=== PATIENT | female | born 1970 ===

== ENCOUNTER 2018-01-13 23:11 | Inpatient (IN) | payer SELFPAY ==
[2018-01-14 00:06] LABS: ABS Basophils 0.1 10^3/ul (0-0.2); ABS Eosinophils 0 10^3/ul (0-0.6); ABS Lymphocytes 1.4 10^3/ul (1.0-4.8); ABS Monocytes 0.4 10^3/ul (0-0.8); ABS Neutrophils 4.9 10^3/ul (1.5-7.7); ABS Nucleated RBC 0 10^3/ul; Eosinophil % 0.6 % (0-6); Hematocrit 33 % (35-47); Hemoglobin 11.1 g/dl (12.0-16.0); Lymphocyte % 20.8 % (25-47); Mean Corpuscular HGB Conc 33 g/dl (31-36); Mean Corpuscular Hemoglobin 28 pg (27-31); Mean Corpuscular Volume 85 fL (80-97); Mean Platelet Volume 7.9 um3 (7.4-10.4); Nucleated Red Blood Cells % 0.1; Platelet Count 288 10^3/ul (150-450); Red Blood Count 3.94 10^6/ul (4.00-5.40); Red Cell Distribution Width 17 % (10.5-15); White Blood Count 6.9 10^3/ul (3.5-10.8)
[2018-01-14 00:22] LABS: EGFR Non-African American 67.4 (>60)
[2018-01-14 00:23] LABS: Lithium < 0.10 mmol/L (0.6-1.2)
--- NOTE | 2018-01-14 00:28 | ED ---
Psychiatric Complaint - HPI Summary HPI Summary: This is scribe Kalebdeepti Pizarro documenting for attending Dr. Nigel Chu MD. A 47 y/o female BIBP presents to ED s/p hallucinations. As per triage, "brought in by PD in handcuffs, pt not cooperative. here for mental health eval. pt yelling, talks about marifer rodriguez. eyes closed, easy respirations". In the ED room, the patient was not cooperative and talked about the end of the world. She stated that satan will come get everybody and everyone will . She does not answer the questions asked by the MD. LEVEL 5 CAVEAT. - History Of Current Complaint Chief Complaint: EDMentalHealth Time Seen by Provider: 01/13/18 23:26 Hx Obtained From: Patient Hx From Patient Unobtainable Due To: Altered Mental Status Associated Signs And Symptoms: Positive: Hallucinating PMH/Surg Hx/FS Hx/Imm Hx Infectious Disease History: Unable to Obtain/Confirm Infectious Disease History: Denies: Traveled Outside the [place] in Last 30 Days Review of Systems Negative: Fever - Upon triage. Psychological: Other - POSITIVE: Hallcinating behavior. All Other Systems Reviewed And Are Negative: No Physical Exam - Summary Physical Exam Summary: Appearance: Well-appearing, Well-nourished, lying in bed comfortable Skin: Warm, dry, no obvious rash Eyes: sclera anicteric, no conjunctival pallor ENT: mucous membranes moist Neck: deferred Respiratory: No signs of respiratory distress Cardiovascular: Appears well perfused, pulses are nml Abdomen: deferred Musculoskeletal: Moving all 4 extremities without obvious discomfort Neurological: Awake and alert, mentation is normal, speech is fluent and appropriate Psychiatric: affect is normal, does not appear anxious or depressed Triage Information Reviewed: Yes Vital Signs On Initial Exam: Initial Vitals Temp Pulse Resp BP Pulse Ox 98.9 F 83 18 168/105 97 01/13/18 23:30 01/13/18 23:30 01/13/18 23:30 01/13/18 23:30 01/13/18 23:30 Vital Signs Reviewed: Yes Diagnostics - Vital Signs Vital Signs Temp Pulse Resp BP Pulse Ox 01/13/18 23:30 98.9 F 83 18 168/105 97 - Laboratory Lab Results: Lab Results 01/13/18 01/13/18 Range/Units 23:59 23:59 WBC 6.9 (3.5-10.8) 10^3/ul RBC 3.94 L (4.00-5.40) 10^6/ul Hgb 11.1 L (12.0-16.0) g/dl Hct 33 L (35-47) % MCV 85 (80-97) fL MCH 28 (27-31) pg MCHC 33 (31-36) g/dl RDW 17 H (10.5-15) % Plt Count 288 (150-450) 10^3/ul MPV 7.9 (7.4-10.4) um3 Neut % (Auto) 71.1 (38-83) % Lymph % (Auto) 20.8 L (25-47) % [place] % (Auto) 6.0 (0-7) % Eos % (Auto) 0.6 (0-6) % Baso % (Auto) 1.5 (0-2) % Absolute Neuts (auto) 4.9 (1.5-7.7) 10^3/ul Absolute Lymphs (auto) 1.4 (1.0-4.8) 10^3/ul Absolute Monos (auto) 0.4 (0-0.8) 10^3/ul Absolute Eos (auto) 0 (0-0.6) 10^3/ul Absolute Basos (auto) 0.1 (0-0.2) 10^3/ul Absolute Nucleated RBC 0 10^3/ul Nucleated RBC % 0.1 Sodium 139 (135-145) mmol/L Potassium 3.5 (3.5-5.0) mmol/L Chloride 108 (101-111) mmol/L Carbon Dioxide 23 (22-32) mmol/L Anion Gap 8 (2-11) mmol/L BUN 9 (6-24) mg/dL Creatinine 0.90 (0.51-0.95) mg/dL Est GFR ( Amer) 81.6 (>60) Est GFR (Non-Af Amer) 67.4 (>60) BUN/Creatinine Ratio 10.0 (8-20) Glucose 106 H (70-100) mg/dL Calcium 8.8 (8.6-10.3) mg/dL Total Bilirubin 0.40 (0.2-1.0) mg/dL AST 20 (13-39) U/L ALT 11 (7-52) U/L Alkaline Phosphatase 58 (34-104) U/L Total Protein 6.9 (6.4-8.9) g/dL Albumin 3.9 (3.2-5.2) g/dL Globulin 3.0 (2-4) g/dL Albumin/Globulin Ratio 1.3 (1-3) TSH Pending Valproic Acid Pending [place] Pending Serum Alcohol Pending Result Diagrams: 01/13/18 23:59 01/13/18 23:59 Lab Statement: Any lab studies that have been ordered have been reviewed, and results considered in the medical decision making process.
[2018-01-14] MEDS ORDERED: Haloperidol INJ IV/IM* 5 MG/ML AMP IM ONE (02:09)
[2018-01-14] MEDS ORDERED: Haloperidol TAB* 5 MG PO PRN ×2 (03:18→13:57)
[2018-01-14] MEDS ORDERED: Al Hydrox/Mg Hydrox/Simet LIQ* 30 ML UDC PO PRN (06:27)
[2018-01-14] MEDS: Vitamin THERAPEUTIC TAB PO SCH (08:43)
[2018-01-14] MEDS ORDERED: diPHENhydraMINE PO* 50 MG PO PRN (13:58)
--- NOTE | 2018-01-14 14:27 | HP ---
H&P (Free Text) History and Physical: JUSTIFICATION FOR ADMISSION: Patient presented to emergency room with worsening psychotic symptoms, delusional with irritability and agitation. She requires inpatient psychiatric admission in order to provide treatment and stabilization as she is a danger to herself. CHIEF COMPLAINT: "Nothing HISTORY OF THE PRESENT ILLNESS: Patient is a 47 y/o female, with unknown past psychiatric history. Patient was admitted to inpatient unit for worsening of psychosis, responding to internal stimuli, delusional and illogical thinking with disorganized and agitated behavior that was danger to self and others. Patient was handcuffed by [employer] and brought to [facility] from outside of [facility] for agitation. Patient was given IM medication in ED and was also put in restraints. . Patient on the unit was again given PRN Haldol which helped her with psychosis and agitation. Patient still very uncooperative with any history on the unit and refused to give any information about her current and past symptoms and history. Patient reportedly has been psychotic with sever agitation but on the unit after receiving PRN medication was calmer but still uncooperative and psychotic. Patient was observed to be responding to internal stimuli, religiously preoccupied. No suicidal or homicidal ideation reported on the unit. Patient continued to exhibit behavior that is unpredictable and out of control . PAST PSYCHIATRIC HISTORY: No past psychiatric history available, chart was reviewed. SUBSTANCE ABUSE HISTORY: No substance use history available and patient refused to cooperate got agitated on questioning. No urine toxicology available as well due to refusal will try again. PAST MEDICAL HISTORY: No known active medical problems ALLERGIES: NKA FAMILY PSYCHIATRIC HISTORY: unknown FAMILY/PSYCHOSOCIAL HISTORY: Patient reportedly is from [place] but not sure how long she has been in [place]. Rest is unknown at this time. REVIEW OF SYSTEMS: Patients review of symptoms was negative for any physical complaint. But patient has been agitated and unstable in her mood, refusing to cooperate, labs were grossly with in normal limits other than mild anemia. Patients ED physical exam was reviewed which is grossly normal with no active medical problem. MENTAL STATUS EXAMINATION: Appearance: alert,lying in bed, covered with blanket, disheveled Behavior: uncooperative and guarded Gait: unable to assessed Abnormal motor activity: none Speech: terse, loud in tone and volume Mood: irritable Affect: labile Thought process: goal directed Thought Content: Suicidal/Homicidal ideation: none Delusions: unable to assess at this time Obsessions: unable to assess at this time Phobia: unable to assess at this time Perceptual disturbance: responding to internal stimuli Attention: impaired Orientation: unable to assess at this time Concentration: unable to assess at this time Memory: unable to assess at this time Insight: poor Judgment: poor Impulse control: poor IMPRESSION: Patient with unknown psychiatric history and urine toxicology unavailable. Patient currently admitted due to worsening of psychosis. Patient is a danger to self and others if discharged hence will be stabilized on inpatient unit with medication adjustments and therapy. DIAGNOSES: unspecified Schizophrenia Spectrum Prov: Substance induced psychosis , Schizoaffective Disorder PLAN: Admit to [facility] on Q 15 min observation. Patient is full code. Patient is on involuntary admission status Integrate patient into the milieu individual and group psychotherapy MMPI and psychological consult with Dr. Zapata. Social work consult for therapy and discharge planning Will hold family meeting with parents to increase Data base, if possible. Patient was started on risperidone 1 mg QAM and 2 mg QHS for psychosis. Patient was also started on Haldol Q6HRS PRN agitation, Benadryl 50 mg Q6HRS for EPS prophylaxis and Ativan 2 mg PO Q6HRS PRN anxiety. Will also try to obtain Urine toxicology again. Will continue to monitor and f/u for improvement and side effects. Jasper Jarrell MD Attending Psychiatrist
[2018-01-14] MEDS: risperiDONE TAB* 2 MG PO SCH (20:07)
[2018-01-14 20:29] LABS: Urine Appearance Clear; Urine Blood Negative (Negative); Urine Color Straw; Urine Ketones Negative (Negative); Urine Protein Negative (Negative); Urine Red Blood Cell Absent (Absent); Urine Specific Gravity 1.002 (1.010-1.030); Urine Urobilinogen Negative (Negative); Urine White Blood Cell Trace(0-5/hpf) (Absent)
[2018-01-14] MEDS ORDERED: Mouth Piece, Nicotine* 1 EACH CARTRIDGE INH SCH (20:31)
[2018-01-15] MEDS: risperiDONE TAB* 1 MG PO SCH (08:37)
[2018-01-15] MEDS: Vitamin THERAPEUTIC TAB PO SCH (08:37)
[2018-01-15] MEDS ORDERED: Mouth Piece, Nicotine* 1 EACH CARTRIDGE ONE (08:37)
[2018-01-15] MEDS: Nicotine GUM* 2 MG PO PRN ×4 (08:38→21:47)
[2018-01-15] MEDS: Nicotine Inhaler* 10 MG AMP INH PRN ×4 (08:38→21:47)
[2018-01-15] MEDS ORDERED: diPHENhydraMINE PO* 25 MG ONE (13:22)
[2018-01-15] MEDS ORDERED: LORazepam TAB(*) 1 MG ONE (14:30)
[2018-01-15] MEDS: risperiDONE TAB* 2 MG PO SCH (20:19)
[2018-01-16] MEDS: Nicotine Inhaler* 10 MG AMP INH PRN (07:33)
[2018-01-16] MEDS: Nicotine GUM* 2 MG PO PRN (07:33)
[2018-01-16] MEDS: risperiDONE TAB* 1 MG PO SCH (08:02)
[2018-01-16] MEDS: Vitamin THERAPEUTIC TAB PO SCH (08:56)
[2018-01-16] MEDS ORDERED: LORazepam TAB(*) 0.5 MG ONE (12:03)
[2018-01-16] MEDS: amLODIPine TAB* 5 MG PO SCH (14:39)
--- NOTE | 2018-01-16 17:30 | PN ---
Subjective - Subjective Date of Service: 01/16/18 Service Type: 61818 Hosp care 15 min low complexity Subjective: Ramone had severe dystonic reaction to antipsychotics she received in the ED requiring requiring intervention on the unit po anticholinergics. She has been doing fine today except for a complaints of jaw tightness. He speech remains mildly pressured and circumstantial. He Risperdol was on hold and will be discontued as she didn't verbalize any psychosis. Rather she agreed to take Depakote for mood instability. Objective - Appearance Appearance: Healthy Appearing Dysmorphic Features: No Hygiene: Normal Grooming: Well Kept - Behavior Psychomotor Activities: Abnormal-Increased Exhibits Abnormal Movement: No - Attitude and Relatedness Attitude and Relatedness: Appropriate Eye Contact: Good - Speech Quality: Pressured Latencies: Short Quantity: Appropriate - Mood Patient's Decription of Mood: "Great" - Affect Observed Affect: Euphoric Affect Consistent with: Euphoria - Thought Process Patient's Thought Process: Coherent, Filght of Ideas, Over Inclusive Thought Content: No Passive Wish, No Suicidal Planning, No Homicidal Ideation, No Paranoid Ideation - Sensorium Experiencing Hallucinations: No, Sensorium is Clear Type of Hallucinations: Visual: No, Auditory: No, Command: No - Level of Consciousness Level of Consciousness: Alert Orientation: Yes Intact, Yes Orientated to Time, Yes Orientated to Place, Yes Orientated to Person - Impulse Control Impulse Control: Intact - Insight and Judgement Insight and Judgement: Fair - Group Participation Particating in Group Activities: Yes - Medication Management Medication Management Adherence: Yes Assessment - Assessment Merits Inpatient Hospitalization: For Immediate Safety, For Stabilization, For Discharge Planning Clinical Impression: Mildly hypomanic without any psychosis. Plan - Plan Treatment Plan: Name: RAMONE RAMIREZ Birthdate: 1970 [id number] Continued Medication Management: Different Medication Medications: Current Medications Acetaminophen (Tylenol Tab*) 650 mg PO Q4H PRN PRN Reason: PAIN or TEMP > 101 F Al Hydrox/Mg Hydrox/Simethicone (Maalox Plus*) 30 ml PO Q4H PRN PRN Reason: INDIGESTION Amlodipine Besylate (Norvasc Tab*) 5 mg PO DAILY [facility] Last Admin: 01/16/18 14:39 Dose: 5 mg Benztropine Mesylate (Cogentin Tab*) 1 mg PO BID [facility] Device (Nicotine Mouth Piece*) 1 each INH .CARTRIDGE [facility] Last Admin: 01/15/18 08:38 Dose: 1 each Diphenhydramine HCl (Benadryl Po*) 50 mg PO Q6H PRN PRN Reason: EPS prophylaxis Divalproex Sodium (Depakote Dr Tab(*)) 250 mg PO BID [facility] Haloperidol (Haldol Tab*) 5 mg PO Q6H PRN PRN Reason: AGITATION Lorazepam (Ativan Tab(*)) 2 mg PO Q6H PRN PRN Reason: ANXIETY Multivitamins (Theragran Tab*) 1 tab PO DAILY [facility] Last Admin: 01/16/18 08:56 Dose: 1 tab Nicotine (Nicotine Inhaler*) 10 mg INH Q2H PRN PRN Reason: CRAVING Last Admin: 01/16/18 07:33 Dose: 10 mg Nicotine Polacrilex (Nicotine Gum*) 2 mg PO Q2H PRN PRN Reason: CRAVING Last Admin: 01/16/18 07:33 Dose: 2 mg Risperidone (Risperdal*) 1 mg PO QAM [facility] Last Admin: 01/16/18 08:02 Dose: Not Given Risperidone (Risperdal*) 2 mg PO BEDTIME [facility] Last Admin: 01/15/18 20:19 Dose: Not Given - Discharge Plan Discharge Plan: Outpatient Follow Up Outpatient Program: [facility]
[2018-01-16] MEDS: Divalproex DR TAB(*) 250 MG PO SCH (20:14)
[2018-01-16] MEDS: Benztropine TAB* 1 MG PO SCH (20:14)
[2018-01-17] MEDS: amLODIPine TAB* 5 MG PO SCH (08:18)
[2018-01-17] MEDS: Divalproex DR TAB(*) 250 MG PO SCH (08:18)
[2018-01-17] MEDS: Vitamin THERAPEUTIC TAB PO SCH (08:18)
[2018-01-17] MEDS: Benztropine TAB* 1 MG PO SCH ×2 (08:18→20:16)
--- NOTE | 2018-01-17 11:46 | PN ---
[facility]: Group Therapy Note - Service Type Service Type: 76705 Group Psychotherapy - Cognitive Behavioral Group Therapy ( CBT):Patient was attentive and participatory in CBT programming this morning, and remained in good behavioral control. Patient expressed positive insights regarding relevant treatment interventions and goals.
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
[2018-01-17] MEDS: Divalproex DR TAB(*) 500 MG PO SCH (20:20)
[2018-01-17] MEDS: LORazepam TAB(*) 1 MG PO PRN (20:22)
[2018-01-17] MEDS ORDERED: Prazosin CAP* 1 MG PO SCH (21:00)
[2018-01-17] MEDS: Acetaminophen TAB* 325 MG PO PRN (21:01)
[2018-01-18] MEDS: LORazepam TAB(*) 1 MG PO PRN (06:36)
[2018-01-18] MEDS: Nicotine GUM* 2 MG PO PRN ×2 (06:36→11:17)
[2018-01-18] MEDS: Nicotine Inhaler* 10 MG AMP INH PRN ×2 (06:36→11:17)
[2018-01-18 07:53] VITALS: BP 142/91
[2018-01-18] MEDS: Benztropine TAB* 1 MG PO SCH (08:30)
[2018-01-18] MEDS: Vitamin THERAPEUTIC TAB PO SCH (08:30)
[2018-01-18] MEDS: Divalproex DR TAB(*) 500 MG PO SCH (08:30)
[2018-01-18] MEDS: amLODIPine TAB* 5 MG PO SCH (08:31)
[2018-01-18] MEDS: Acetaminophen TAB* 325 MG PO PRN (11:17)
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
== END 2018-01-18 12:50 | disposition home or self-care (01) | DRG 885 ==
LOC: ED 23:11 → BSU 01-14 04:56
PROVIDERS: ADMIT Psychiatry & Neurology Psychiatry; ATTEND Psychiatry & Neurology Psychiatry
DX: F31.2 Bipolar disorder, current episode manic severe with psychotic features (principal); F14.21 Cocaine dependence, in remission; F12.21 Cannabis dependence, in remission
CPT/HCPCS: 36415; 80053; 80061; 80164; 80178; 80307; 80320; 81003; 81015; 83036; 84443; 84702; 85025; 87086; 90853; 99222; 99231; 99232; 99238; 99285; A9270-GY; G0480; J1630